=== PATIENT | male | born 1965 | race Caucasian/White ===

== ENCOUNTER 2018-08-31 17:36 | Emergency (ER) | payer BC ==
[2018-08-31] MEDS ORDERED: ASPIRIN (CHEWABLE) 81 MG TAB ONE (17:39)
[2018-08-31] MEDS ORDERED: TENECTEPLASE 50 MG VIAL ONE (17:50)
[2018-08-31] MEDS ORDERED: NITROGLYCERIN/D5W IV 250 ML IVS ONE (17:52)
[2018-08-31] MEDS ORDERED: NITROGLYCERIN 0.4 MG 25 EA TAB SL ONE (17:52)
[2018-08-31] MEDS ORDERED: MORPHINE SULFATE INJ 10 MG/ML VIAL ONE (17:52)
[2018-08-31] MEDS ORDERED: ASPIRIN (CHEWABLE) 81 MG TAB PO ONE (18:02)
[2018-08-31] MEDS ORDERED: MORPHINE SULFATE INJ 10 MG/ML VIAL IV ONE (18:02)
[2018-08-31] MEDS ORDERED: HEPARIN PREMIX 25,000 UNITS in PREMIX BAG 1 BAG IVS SCH ×2 (18:15→18:45)
[2018-08-31] MEDS ORDERED: HEPARIN SODIUM (PORCINE) 5,000 U/ML VIAL ONE (18:20)
[2018-08-31] MEDS ORDERED: HEPARIN PREMIX 500 ML ONE (18:21)
--- NOTE | 2018-08-31 18:22 | RAD ---
EXAM DESCRIPTION: Chest,1 View CLINICAL HISTORY: 53 years Male STEMI COMPARISON: None TECHNIQUE: AP view of the chest was obtained. FINDINGS: Cardiac size is within normal limits. Central vessels are not increased. No infiltrates or effusions seen. No consolidation. No pneumothorax. IMPRESSION: No active disease. Electronically signed by: Dalia Emmanuel MD 08/31/2018 6:20 PM CDT
--- NOTE | 2018-08-31 18:26 | ED.PDOC ---
History of Present Illness - General Chief Complaint: Chest Pain/TN Stated Complaint: Chest pain/SOB Time Seen by Provider: 08/31/18 17:47 Source: patient Exam Limitations: no limitations - History of Present Illness Initial Comments: PT C/O CP. ONSET 1 HOUR [employer]. SUBSTERNAL PRESSURE, RADIATION TO L AXILLA AND R NECK AND JAW. SOB, NO NAUSEA OR DIAPHORESIS. HAS HAD SOB AND EXERCISE INTOLERANCE FOR PAST SEVERAL MONTHS. SAW HIS PCP WHO RECOMMENDED ECHO AND ?STRESS THALLIUM? BUT PT DID NOT FOLLOW UP. 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 Timing/Duration: 1 hour Severity/Quality: moderate Location: substernal Chest Pain Radiation: jaw, neck Nitro Today/Relief: no nitro taken today Aspirin Treatment Today: no aspirin today Allergies/Adverse Reactions: Allergies Levofloxacin [From Levaquin] Allergy (Verified 08/31/18 18:31) Penicillins Allergy (Verified 08/31/18 18:31) Sulfa Antibiotics Allergy (Verified 08/31/18 18:31) Home Medications: Ambulatory Orders Esomeprazole Magnesium [Nexium] 10 mg PO DAILY 08/31/18 Olmesartan Medoxomil [Benicar] 20 mg PO DAILY 08/31/18 Tadalafil [Cialis] 10 mg PO WKLY 08/31/18 Review of Systems - Review of Systems Constitutional: Denies: chills, diaphoresis, fever EENTM: States: no symptoms reported Respiratory: States: short of breath. Denies: cough, wheezing Cardiology: States: chest pain. Denies: palpitations, syncope Gastrointestinal/Abdominal: States: other - REPORTS HE HAS HAD SOME BLOODY MUCOUS IN HIS STOOLS. LAST EPISODE 3 DAYS AGO. . Denies: abdominal pain, nausea, vomiting Genitourinary: States: no symptoms reported Musculoskeletal: States: no symptoms reported Skin: States: no symptoms reported, other - NO DIAPHORESIS Neurological: States: no symptoms reported Endocrine: States: no symptoms reported Hematologic/Lymphatic: States: no symptoms reported Past Medical History (General) - Patient Medical History Hx Hypertension: Yes - Social History Hx Tobacco Use: Yes Family Medical History - Family History Mother Living Status: Still Living Hx Cardiac Disease: Yes Hx Family Diabetes: Yes Father Living Status: Hx Cardiac Disease: Yes Physical Exam - Physical Exam General Appearance: Alert, No apparent distress Eyes, Ears, Nose, Throat Exam: PERRL/EOMI, normal ENT inspection Neck: non-tender, full range of motion, supple, normal inspection Respiratory: lungs clear, normal breath sounds Cardiovascular/Chest: regular rate, rhythm, no murmur Gastrointestinal/Abdominal: non tender, soft, no organomegaly Rectal Exam: normal exam, normal rectal tone, heme negative stool Extremity: normal range of motion, non-tender, normal inspection Neurologic: alert, oriented x 3 Skin Exam: normal color, warm/dry Lymphatic: no adenopathy Progress - Progress Progress: 08/31/18 18:45 PAIN BETTER, FROM -09/11 TO 04/14. 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 WILL GET REPEAT EKG IN MEANTIME. 08/31/18 18:58 D/W [facility], ACCEPTS PT IN TRANSFER. EKG#3 SINUS ZAHIRA, RATE 57, NL AXIS, NL INTERVALS, NON SPECIFIC ST T WAVE CHANGES, NAIP, RESOLUTION OF PREVIOUSLY N OTED LATERAL WALL INJURY PATTERN. 08/31/18 19:43 AIR EVAC HERE, PT REMAINS STABLE, - EKG/XRAY/CT EKG: Sinus - RATE 75, NL AXIS, NL INTERVALS, , ST elevation - LATERAL WITH RECIPRICOL DEPRESSION INF LEADS. NO OLD FOR COMPARISON XRAY: chest - ALLEN - Additional EKG/XRAY/Consults EKG #2: Sinus - RATE 74, NL AXIS, NL INTERVALS, , ST elevation - LAT LEADS WITH RECIPRICOL DEPRESSION, NO R VENTRICULAR INVOLVEMENT. NO CHANGE FROM PREVIOUS SAME DAY Comments: R SIDED Departure - Departure Clinical Impression: ST elevation (STEMI) myocardial infarction of unspecified site Qualifiers: Involved coronary artery: unspecified coronary artery Qualified Code(s): I21.3 - ST elevation (STEMI) myocardial infarction of unspecified site Time of Disposition: 19:46 Disposition: Discharge to Home or Self Care Departure Forms: ED Discharge - Pt. Copy, Patient Portal Self Enrollment Instructions: DI for Chest Pain Home Medications: Ambulatory Orders Esomeprazole Magnesium [Nexium] 10 mg PO DAILY 08/31/18 Olmesartan Medoxomil [Benicar] 20 mg PO DAILY 08/31/18 Tadalafil [Cialis] 10 mg PO WKLY 08/31/18 Critical Care Note - Critical Care Note Total Time (mins): 90 Comments: EVENT: STEMI FINDINGS: ST ELEVATION AVL, WITH RECIPROCAL CHANGES. INTERVENTION: TNKASE LISE: CARDIOVASCULAR Transfer to Outside Facility - Transfer Information Accepting Provider:: ER PHYSICIAN Accepting Facility: [facility]
[2018-08-31] MEDS ORDERED: NITROGLYCERIN/D5W IV 50,000 MCG in PREMIX BOTTLE 1 BOTTLE IVS SCH (18:30)
[2018-08-31] MEDS ORDERED: HEPARIN SODIUM (PORCINE) 5,000 U/ML VIAL IV ONE (18:36)
[2018-08-31] MEDS ORDERED: TENECTEPLASE 50 MG VIAL IV ONE (18:37)
[2018-08-31 20:13] VITALS: BP 166/89; TEMP 97.1; O2SAT 99
== END 2018-08-31 19:32 | disposition home or self-care (01) ==
LOC: ER 17:36
DX: I21.3 ST elevation (STEMI) myocardial infarction of unspecified site (principal); R06.02 Shortness of breath; I10 Essential (primary) hypertension; Z87.891 Personal history of nicotine dependence; Z88.1 Allergy status to other antibiotic agents; Z88.0 Allergy status to penicillin; Z88.2 Allergy status to sulfonamides
CPT/HCPCS: 36415; 71045; 80053; 84484; 85025; 85610; 85730; 93005; J1644; J2270; J3101